=== PATIENT | female | born 1990 | race Caucasian/White ===

== ENCOUNTER 2023-06-17 15:22 | Emergency (ER) | payer MEDICAID, OTHER ==
[2023-06-17 15:38] VITALS: O2SAT 100
--- NOTE | 2023-06-17 16:14 | ED Physician Documentation ---
History of Present Illness - Stated complaint Stated Complaint: GLF,FOGGY HEADED - Chief complaint Chief Complaint: Neuro - History obtained from History obtained from: Patient - Additonal information Additional information: The patient comes to the emergency department chief complaint of syncopal episode, feeling "foggy", itchy rash on chest and general skin itching without rash elsewhere, and getting hot and cold flashes. She has not measured a fever. The patient denies any other symptoms of illness, such as runny nose, cough, diarrhea, and vomiting. The patient states she gets nauseated occasionally. She states that her recently went away and so she is at home by herself with the kids. She is working full-time and also going to hospital [employer] and states that she is just so busy that it is really hard to get any sleep. She has noticed a little drainage out of her left ear as well. She states she is otherwise fairly healthy. No new medications. No new skin products. She did put some fake kanu on her hands after noticing that her thumbs looked red yesterday. She states she is used this before and never had a reaction. 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 She do es not have any history of specific allergies to anything. No other complaints at this time. PD PAST MEDICAL HISTORY - Past Medical History Past Medical History: Yes Cardiovascular: None Respiratory: None Neuro: None Endocrine/Autoimmune: None GI: None DIGITAL CONTENT SPECIALIST: Ovarian cysts : None HEENT: None Psych: ADD/ADHD Musculoskeletal: None Derm: None - Past Surgical History Past Surgical History: Yes /DIGITAL CONTENT SPECIALIST: section - Present Medications Home Medications: Ambulatory Orders Medication Instructions Recorded Confirmed Acetaminophen [Tylenol] 2 tab PO DAILY 06/17/23 06/17/23 Dextroamphetamine/Amphetamine 15 mg PO DAILY 06/17/23 06/17/23 [Adderall 15 mg Tablet] Ibuprofen [Advil] 1 tab PO PRN PRN 06/17/23 06/17/23 Propranolol [Inderal] 20 mg PO DAILY 06/17/23 06/17/23 - Allergies Allergies/Adverse Reactions: Allergies Allergy/AdvReac Type Severity Reaction Status Date / Time No Known Drug Allergies Allergy Verified 06/17/23 15:52 - Social History Does the pt smoke?: No Smoking Status: Never smoker Does the pt drink ETOH?: No Does the pt have substance abuse?: No - Immunizations Immunizations are current?: Yes - POLST Patient has POLST: No PD ED PE NORMAL - Vitals Vital signs reviewed: Yes - General General: Alert and oriented X 3, No acute distress, Well developed/nourished - HEENT HEENT: Atraumatic, PERRL, EOMI, Moist mucous membranes - Neck Neck: Supple, no meningeal sign - Cardiac Cardiac: RRR, No murmur, Strong equal pulses - Respiratory Respiratory: No respiratory distress, Clear bilaterally - Abdomen Abdomen: Soft, Non tender, Non distended - Derm Derm: Warm and dry, Other (Fine, maculopapular rash on chest. No urticaria. No other truncal rash noted.) - Extremities Extremities: No deformity, Other (Random muscle jerks throughout patient's trunk that began during the physical exam.) - Neuro Neuro: Other (Grossly intact) - Psych Psych: Normal mood, Normal affect Results - Vitals Vitals: Vital Signs - 24 hr 06/17/23 15:24 Temperature 36.7 C Heart Rate 106 H Respiratory 16 Rate Blood Pressure 129/88 H O2 Saturation 100 Oxygen O2 Source Room air - EKG (time done) 1650 EKG releavant findings:: EKG personally interpreted by author of this note. Relevant findings are: Rate: Rate (enter#) (101) Rhythm: Sinus tachycardia, Other (Mobitz 1 type II heart block.) [place]: Normal Intervals: 2nd degree AVB type 1 QRS: Normal Ischemia: Normal ST segments Compare to prior EKG: Old EKG unavailable - Labs Labs: Laboratory Tests 06/17/23 06/17/23 06/17/23 16:20 16:20 16:20 WBC 4.9 RBC 4.05 L Hgb 12.9 Hct 40.0 MCV 98.8 MCH 31.9 H MCHC 32.3 RDW 12.4 Plt Count 394 MPV 8.6 Neut # (Auto) 2.6 Lymph # (Auto) 1.6 Story # (Auto) 0.5 Eos # (Auto) 0.2 Baso # (Auto) 0.1 Absolute Nucleated RBC 0.00 Nucleated RBC % 0.0 Sodium 137 Potassium 4.2 Chloride 104 Carbon Dioxide 30 Anion Gap 3.0 L BUN 8 Creatinine 0.6 Estimated GFR (MDRD) 116 Glucose 118 H Calcium 9.8 Total Bilirubin 0.3 AST 24 ALT 16 Alkaline Phosphatase 34 L Total Protein 6.6 Albumin 4.2 Globulin 2.4 Albumin/Globulin Ratio 1.8 Lipase 30 Nasal Adenovirus (PCR) NOT DETECTED Nasal B. parapertussis DNA (PCR) NOT DETECTED Nasal Coronavir 229E PCR NOT DETECTED Nasal Coronavir HKU1 PCR NOT DETECTED Nasal Coronavir NL63 PCR NOT DETECTED Nasal Coronavir OC43 PCR NOT DETECTED Nasal Enterovir/Rhinovir PCR NOT DETECTED Nasal Influenza B PCR NOT DETECTED Nasal Influenza A PCR NOT DETECTED Nasal Parainfluen 1 PCR NOT DETECTED Nasal Parainfluen 2 PCR NOT DETECTED Nasal Parainfluen 3 PCR NOT DETECTED Nasal Parainfluen 4 PCR NOT DETECTED Nasal RSV (PCR) NOT DETECTED Nasal B.pertussis DNA PCR NOT DETECTED Nasal C.pneumoniae (PCR) NOT DETECTED Christiano Human Metapneumo PCR NOT DETECTED Nasal M.pneumoniae (PCR) NOT DETECTED Nasal SARS-CoV-2 (PCR) NOT DETECTED PD Medical Decision Making - ED course Complexity details: reviewed results, re-evaluated patient, considered differential, d/w patient ED course: The patient had a constellation of nonspecific and seemingly unrelated symptoms. I discussed with her that the rash on her chest could be related to the moisture and gear she had been having to wear, as well as to friction. The random itching on her skin may also be related to something she is having to wear. She cannot pinpoint any new product that she is used that may be causing her skin itching. She has not had any specific symptoms of illness. Given the vague nature of her symptoms and the lack of any sort of localization, I did go ahead and just order basic labs and respiratory PCR panel, As well as EKG. The patient was found to have normal labs and a negative PCR panel. Her EKG showed a Mobitz 1 type II AV block. I discussed all the findings with the patient. Although her heart rhythm is benign and may have been going on for years, it would not be a bad idea for her to see her primary doctor and get scheduled for an event monitor to get a better idea of whether she is chronically in this rhythm and whether there are any other rhythm issues with her palpitations. As far as her itchiness and rash on her chest, I really do not know what has caused this. It is very nonspecific and the patient has no urticaria. However, the rash is not Indicative of a serious condition at this time. We have discussed that the patient most likely is having some of the sense of fatigue and "brain fog" from her lack of sleep and stress recently. I have encouraged her to follow-up with her primary doctor. Departure - Departure Disposition: 01 Home, Self Care Clinical Impression: Second degree heart block by electrocardiogram (ECG), Pruritus Insomnia Qualifiers: Insomnia type: unspecified Qualified Code(s): G47.00 - Insomnia, unspecified Condition: Stable Instructions: Heart Block 2nd Degree, ED Insomnia Comments: Your laboratory studies look great and your viral panel is negative. Your EKG shows a benign heart block. As we discussed, there are 3 categories of heart block. Type I and type II category 1 are benign. If you have type II category 2 or type III, these are not benign. Fortunately, your type is type II, category 2 (Mobitz 1 type II heart block). This is most likely the reason that you feel palpitations. You may make an appointment with your primary doctor to discuss event monitoring where you can wear a monitor as you go about your daily business and keep track of your heart rate and rhythm. That way, your doctor can see if you are in this rhythm all the time or only intermittently. Whether or not further follow-up or intervention is needed from that point can be determined based on the event monitoring. Most of the time however, This type of signal blocking is benign and does not need further intervention. As far as your fatigue and twitching, this is most likely due to to combination of stress and insomnia. You do not have any electrolyte abnormalities to give rise to further concern and your blood counts are normal. It is not clear what is causing your itchy skin or the fine rash on your chest. Given that you are wearing a lot of clothing and equipment, in addition to exerting yourself and being in moist situations, it could be a combination of these things. If you continue to have unexplained itching or rashes, you can speak with your doctor about referring you to dermatology for more in-depth opinion. No emergent condition has been identified today. Please make the next available appointment to follow-up with your primary doctor. Forms: PCP List
[2023-06-17 16:27] LABS: BASOPHILS # (AUTO) 0.1 10^3/uL (0.0-0.1); BASOPHILS % (AUTO) 1.8 %; EOSINOPHILS # (AUTO) 0.2 10^3/uL (0.0-0.7); EOSINOPHILS % (AUTO) 4.3 %; HGB - HEMOGLOBIN 12.9 g/dL (12.0-16.0); LYMPHOCYTES # (AUTO) 1.6 10^3/uL (1.5-3.5); LYMPHOCYTES % (AUTO) 31.6 %; MEAN CORPUSCULAR HEMOGLOBIN 31.9 pg (27.0-31.0); MEAN CORPUSCULAR HGB CONC 32.3 g/dL (32.0-36.0); MEAN CORPUSCULAR VOLUME 98.8 fL (81.0-99.0); MEAN PLATELET VOLUME 8.6 fL (7.9-10.8); MONOCYTES # (AUTO) 0.5 10^3/uL (0.0-1.0); MONOCYTES % (AUTO) 9.2 %; NEUTROPHILS # (AUTO) 2.6 10^3/uL (1.5-6.6); NEUTROPHILS % (AUTO) 52.9 %; PLT - PLATELET COUNT 394 10^3/uL (130-450); RED BLOOD COUNT 4.05 10^6/uL (4.20-5.40); RED CELL DISTRIBUTION WIDTH 12.4 % (12.0-15.0); WHITE BLOOD COUNT 4.9 x10^3/uL (4.8-10.8)
[2023-06-17] MEDS: SODIUM CHLORIDE 0.9% 1,000 ML IV STA (16:38)
[2023-06-17 16:39] LABS: ALBUMIN 4.2 g/dL (3.2-5.5); ALBUMIN/GLOBULIN RATIO 1.8 (1.0-2.2); BILIRUBIN,TOTAL 0.3 mg/dL (0.2-1.0); CALCIUM 9.8 mg/dL (8.5-10.3); CREATININE 0.6 mg/dL (0.6-1.3); POTASSIUM 4.2 mmol/L (3.5-4.5); TOTAL PROTEIN 6.6 g/dL (6.4-8.9)
[2023-06-17 17:35] LABS: CORONAVIRUS 229E-RESP PCR NOT DETECTED; CORONAVIRUS HKU1-RESP PCR NOT DETECTED; CORONAVIRUS NL63-RESP PCR NOT DETECTED; CORONAVIRUS OC43-RESP PCR NOT DETECTED; HUMAN METAPNEUMOVIRUS NOT DETECTED; INFLUENZA A- RESP PCR PANEL NOT DETECTED; INFLUENZA B - RESP PCR PANEL NOT DETECTED; PARAINFLUENZA VIRUS 1 NOT DETECTED; PARAINFLUENZA VIRUS 2 NOT DETECTED; RHINOVIRUS/ENTEROVIRUS NOT DETECTED; SARS-CoV-2 -RESP PCR PANEL NOT DETECTED
[2023-06-17 17:36] LABS: B. PARAPERTUSSIS- RESP PCR PAN NOT DETECTED; B. PERTUSSIS- RESP PCR PANEL NOT DETECTED; C. PNEUMONIAE- RESP PCR PANEL NOT DETECTED; M. PNEUMONIAE- RESP PCR PANEL NOT DETECTED; PARAINFLUENZA VIRUS 3 NOT DETECTED; PARAINFLUENZA VIRUS 4 NOT DETECTED; RSV- RESP PCR PANEL NOT DETECTED
[2023-06-17 18:31] VITALS: BP 128/88
== END 2023-06-17 18:22 | disposition home or self-care (01) ==
LOC: ED 15:22
DX: I44.1 Atrioventricular block, second degree (principal); L29.9 Pruritus, unspecified; G47.00 Insomnia, unspecified; Z11.52 Encounter for screening for COVID-19
CPT/HCPCS: 36415; 80053; 83690; 85025; 87633; 93005; 99283